=== PATIENT | female | born 1975 | race Caucasian/White ===

== ENCOUNTER 2023-07-02 16:38 | Emergency (ER) | payer SELFPAY ==
[~2023-07-02] VITALS: Ht 167.6 cm; Wt 72.6 kg
[2023-07-02 17:08] VITALS: BP 127/57; PULSE 77; RESP 18; TEMP 98; O2SAT 98
[2023-07-02 17:10] VITALS: O2SAT 98
== END 2023-07-02 17:45 | disposition left against medical advice (07) ==
LOC: MED 16:38
DX: F43.0 Acute stress reaction (principal); F41.9 Anxiety disorder, unspecified; I10 Essential (primary) hypertension; E11.9 Type 2 diabetes mellitus without complications; Z79.4 Long term (current) use of insulin; Z79.899 Other long term (current) drug therapy
CPT/HCPCS: 99283